=== PATIENT | female | born 2000 | race American Indian/Alaskan Native ===

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

== ENCOUNTER 2018-12-12 18:50 | Emergency (ER) | payer OTHER | END 2018-12-12 19:00 | disposition left against medical advice (07) | LOC: ED 18:50 | DX: R07.89 Other chest pain (principal); Z53.21 Procedure and treatment not carried out due to patient leaving prior to being seen by health care provider ==